=== PATIENT | male | born 1990 | race Caucasian/White ===

== ENCOUNTER 2016-08-02 18:56 | Emergency (ER) | payer OTHER | END 2016-08-02 20:10 | disposition home or self-care (01) | LOC: ER 18:56 | DX: T81.32XA Disruption of internal operation (surgical) wound, not elsewhere classified, initial encounter (principal); I10 Essential (primary) hypertension; Z79.899 Other long term (current) drug therapy ==

== ENCOUNTER 2016-09-10 17:24 | Emergency (ER) | payer OTHER | END 2016-09-11 02:20 | disposition home or self-care (01) | LOC: ER 17:24 | DX: E83.39 Other disorders of phosphorus metabolism (principal); G40.909 Epilepsy, unspecified, not intractable, without status epilepticus; I12.9 Hypertensive chronic kidney disease with stage 1 through stage 4 chronic kidney disease, or unspecified chronic kidney disease; N18.9 Chronic kidney disease, unspecified; Z99.2 Dependence on renal dialysis; Z94.0 Kidney transplant status; Z79.899 Other long term (current) drug therapy | CPT/HCPCS: 96365; 96366; J7040 ==